=== PATIENT | female | born 1970 | race Caucasian/White ===

== ENCOUNTER 2016-10-30 07:23 | Emergency (ER) | payer OTHER ==
[~2016-10-30] VITALS: Ht 165.1 cm; Wt 124.8 kg
[~2016-10-30 07:23] MED LIST: CYANOCOBALAM1000 MCG PO; DOXYCYCLINE HY100 M1 PO
[2016-10-30] MEDS ORDERED: DAILY VALUE1 EACH PO (07:54)
[2016-10-30] MEDS ORDERED: ASPIR 8181 M1 PO (07:54)
[2016-10-30 07:55] LABS: HEMATOCRIT 45.9 % (36.0-46.0); MCH 27.3 PG (29.0-34.0); MCHC 32.9 G/DL (30.0-36.0); MEAN PLAT.VOLUME 11.2 uM^3 (9.5-12.4); PLATELET COUNT 229 K/uL (156-360); RBC DIS.WIDTH-CV 13.2 % (11.8-14.6); RBC DIS.WIDTH-SD 40.1 % (39-53); RED BLOOD COUNT 5.53 M/uL (3.80-5.20)
[2016-10-30] MEDS ORDERED: FLONASE16 G1 BOTH NARES (07:55)
[2016-10-30 08:07] LABS: CHLORIDE 107 mEq/L (99-109); SODIUM 138 mEq/L (136-147)
[2016-10-30 08:08] LABS: GLUCOSE 105 mg/dL (70-99)
[2016-10-30 08:10] LABS: ANION GAP 8 MEQ/L (2-14)
[2016-10-30 08:12] LABS: GFR ESTIMATE (CALCULATED) > 59 mL/min/
[2016-10-30 08:13] LABS: UREA NITROGEN (BUN) 10 mg/dL (9-23)
[2016-10-30 08:17] LABS: TROP-I INTERPRETATION NEGATIVE; TROPONIN-I < 0.01 ng/mL (0.0-0.30)
[2016-10-30 08:26] LABS: PROTHROMBIN TIME 10.1 (9.2-11.2); PTT 30.1 (25-32)
[2016-10-30 08:36] LABS: QUANTITATIVE HCG < 4.0 MIU/ML
[2016-10-30 11:28] LABS: TROP-I INTERPRETATION NEGATIVE; TROPONIN-I < 0.01 ng/mL (0.0-0.30)
[2016-10-30 11:55] VITALS: BP 138/93
== END 2016-10-30 12:07 | disposition home or self-care (01) ==
LOC: EME 07:23
PROVIDERS: Nurse Practitioner Family
DX: R07.9 Chest pain, unspecified (principal); R42 Dizziness and giddiness; R11.0 Nausea; Z90.710 Acquired absence of both cervix and uterus; Z82.49 Family history of ischemic heart disease and other diseases of the circulatory system
CPT/HCPCS: 70450; 71020; 80048; 84484; 84702; 85027; 85610; 85730; 93005; 99281; 99285; J1885; J2405; J7030